=== PATIENT | female | born 1935 | race Caucasian/White ===

== ENCOUNTER 2020-08-10 13:02 | Emergency (ER) | payer MEDICARE, BC, OTHER ==
[~2020-08-10] VITALS: Ht 149.9 cm; Wt 36.7 kg
[~2020-08-10 13:02] MED LIST: ASPIR 8181 MG PO; CLINDAMYCIN; COLACE 100 MG100 MG; FIBERCON625 M1; FLEXERIL PO; NITROGLYCERIN0.4 MG SUBLING; NOHOMEMEDICATIONS; NORCO 5-325 TA1 EACH PO; PEPCID AC20 M1; PEPCID PO; PERCOCET PO; PHENERGAN 25 MG25 MG; PREDNISONE 10 M10 MG PO; REFRESH OPTIVE1 EACH OPHTHALMIC; VENTOLIN HFA 1818 GM INH; ZANAFLEX4 MG PO; ZOFRAN ODT4 MG; ZPAK PO
[2020-08-10] MEDS ORDERED: NEURONTIN 300M300 M2 PO (13:13)
[2020-08-10] MEDS ORDERED: HYDROCODON-ACE1 EA14 PO (13:14)
[2020-08-10] MEDS ORDERED: ULTRAM 50MG TAB50 MG PO (13:14)
[2020-08-10 13:30] LABS: HEMATOCRIT 39.8 % (37.0-47.0); HEMOGLOBIN 13.5 gm/dL (12.0-15.0); MCH 29.5 pg (26.0-34.0); MCV 86.8 fL (80.0-100.0); MPV 6.5 fl. (7.2-11.1); RBC 4.59 mil/uL (4.20-5.00); WBC 4.5 thou/uL (4.0-11.0)
[2020-08-10 13:36] LABS: CREATININE 0.8 mg/dL (0.6-1.3); POTASSIUM 4.1 mmol/L (3.5-5.1)
[2020-08-10 14:01] LABS: URINE BILIRUBIN NEGATIVE (Negative); URINE BLOOD NEGATIVE (Negative); URINE CLARITY CLEAR; URINE COLOR YELLOW; URINE GLUCOSE-RANDOM NEGATIVE (Negative); URINE KETONES 1+ (Negative); URINE LEUKOCYTES-REFLEX NEGATIVE (Negative); URINE NITRITE-REFLEX NEGATIVE (Negative); URINE PROTEIN NEGATIVE (Negative); URINE UROBILINOGEN 0.2 E.U./dl (0.2-1.0)
[2020-08-10] MEDS ORDERED: HYDROCODON-ACE1 EAC7 PO (17:08)
[2020-08-10 17:41] VITALS: BP 162/81
== END 2020-08-10 17:42 | disposition home or self-care (01) ==
LOC: M.ERS 13:02
PROVIDERS: Emergency Medicine Emergency Medical Services
DX: M54.5 Low back pain (principal); Z88.0 Allergy status to penicillin; Z79.899 Other long term (current) drug therapy; Z98.890 Other specified postprocedural states